=== PATIENT | male | born 1970 | race Native Hawaiian/Other Pacific Islander ===

== ENCOUNTER → 2020-06-14 | Outpatient (CLI) | payer OTHER ==
[~2020-06-14] MED LIST: AMBIEN 5MG TABLE5 MG PO; EC-NAPROSYN500 MG PO; FLEXERIL 1010 MG/TAB PO; INDOCIN 25MG CA25 MG PO; LIPITOR20 MG PO; LOPID 600M600 MG/TAB PO; MICARDIS80 MG PO; PRINIVIL20 MG PO; ZOLOFT 50MG50 MG PO
== END ==
LOC: ZCOL.LAB 16:58
DX: B34.9 Viral infection, unspecified (principal); Z20.828 Contact with and (suspected) exposure to other viral communicable diseases